=== PATIENT | female | born 1995 | race Caucasian/White ===

== ENCOUNTER 2016-09-30 13:12 | Emergency (ER) | payer OTHER ==
--- NOTE | 2016-09-30 13:48 | ER Document Report ---
ED GI/ - General Mode of Arrival: Ambulatory Information source: Patient TRAVEL OUTSIDE OF THE [place] IN LAST 30 DAYS: No - HPI Patient complains to provider of: Vaginal bleeding Associated symptoms: Other - See above <YUMIKO CLEMENS - Last Filed: 09/30/16 13:49> <BHAVNA JOSÉ - Last Filed: 09/30/16 16:27> - General Chief Complaint: Vag Bleeding, +preg <12wks Stated Complaint: VAGINAL BLEEDING Notes: Patient is a 21 year old, , female who presents to the emergency department complaining of vaginal bleeding onset this morning. Patient reports that there have been some clots passing and also complains of cramping. Patient states she believes she's between 7-10 weeks and had a positive test with her doctor 2 weeks ago, patient does not recall when her last period was. Patient states that she has vitamins at home but does not say if she takes them or not. Patient currently is on effexor xr for anxiety. (YUMIKO CLEMENS) - Related Data Allergies/Adverse Reactions: Sulfa (Sulfonamide Antibiotics) Allergy (Verified 09/30/16 13:20) Past Medical History - General Information source: Patient - Social History Smoking Status: Never Smoker Frequency of alcohol use: Occasional Family History: Reviewed & Not Pertinent Patient has suicidal ideation: No Patient has homicidal ideation: No Past Surgical History: Reports: Hx Orthopedic Surgery - ankle <YUMIKO CLEMENS - Last Filed: 09/30/16 13:49> Review of Systems - Review of Systems Constitutional: No symptoms reported EENT: No symptoms reported Cardiovascular: No symptoms reported Respiratory: No symptoms reported Gastrointestinal: No symptoms reported Genitourinary: No symptoms reported Female Genitourinary: See HPI, , Vaginal bleeding, Other - cramping Musculoskeletal: No symptoms reported Skin: No symptoms reported Hematologic/Lymphatic: No symptoms reported Neurological/Psychological: No symptoms reported -: Yes All other systems reviewed and negative <YUMIKO CLEMENS - Last Filed: 09/30/16 13:49> Physical Exam - Vital signs Interpretation: Normal - General General appearance: Alert, Other - Tearful - HEENT Head: Normocephalic, Atraumatic - Respiratory Respiratory status: No respiratory distress Chest status: Nontender Breath sounds: Normal Chest palpation: Normal - Cardiovascular Rhythm: Regular Heart sounds: Normal auscultation Murmur: No - Abdominal Inspection: Normal Distension: No distension Bowel sounds: Normal Tenderness: Nontender Organomegaly: No organomegaly - Extremities General upper extremity: Normal inspection General lower extremity: Normal inspection - Neurological Neuro grossly intact: Yes Cognition: Normal Orientation: AAOx4 [place] Coma Scale Eye Opening: Spontaneous [place] Coma Scale Verbal: Oriented Ben Coma Scale Motor: Obeys Commands Ben Coma Scale Total: 15 Speech: Normal - Psychological Associated symptoms: Tearful - Skin Skin Temperature: Warm Skin Moisture: Dry Skin Color: Normal <YUMIKO CLEMENS - Last Filed: 09/30/16 13:49> Course <YUMIKO CLEMENS - Last Filed: 09/30/16 13:49> - Laboratory Result Diagrams: 09/30/16 14:12 - Diagnostic Test Radiology reviewed: Reports reviewed - No intrauterine or other abnormality seen on ultrasound <BHAVNA JOSÉ - Last Filed: 09/30/16 16:27> - Re-evaluation Re-evalutation: 09/30/16 16:23 The patient's hCG level is 999, the ultrasound does not show a . (BHAVNA JOSÉ) - Vital Signs Vital signs: Temp Pulse Resp BP Pulse Ox 98.9 F 104 H 18 147/96 H 100 09/30/16 13:20 09/30/16 13:20 09/30/16 13:20 09/30/16 13:20 09/30/16 13:20 - Laboratory Laboratory results interpreted by me: 09/30/16 09/30/16 14:12 14:12 MCH 26.4 L RDW 16.3 H Beta HCG, Quant 999.01 H Discharge <YUMIKO CLEMENS - Last Filed: 09/30/16 13:49> <BHAVNA JOSÉ - Last Filed: 09/30/16 16:27> - Discharge Clinical Impression: Bleeding in early Condition: Stable Disposition: HOME, SELF-CARE Additional Instructions: Bleeding During Early : You have been evaluated for passing blood while . While we take this symptom very seriously, most women with your degree of bleeding will go on to have a perfectly normal baby. At this time, there is no indication that a miscarriage will occur. (A miscarriage occurs when the fetus is abnormal. There is no medicine or treatment to prevent it.) A more serious cause of bleeding is tubal . An ultrasound can show whether the is in the uterus or in the tube. Sometimes in early , no fetus is seen. In this case, careful follow-up, including repeat blood tests and repeat ultrasound, is necessary. You should rest in bed until the symptoms have resolved. Do not douche or have sex for at least a week, or until OK'd by the doctor. Don't use tampons. Call the doctor or return for re-examination if there is an increase in bleeding or cramping, extreme weakness, fainting, new abdominal pain, fever, or passage of tissue. At this time we cannot tell if you have miscarried, or have a very early . A repeat hormone level will need to be done to compare to today's results. Take Tylenol for cramps needed. Follow-up with your primary care provider Sunday or Sunday for repeat hormone level testing. RETURN TO THE EMERGENCY ROOM IF ANY NEW OR WORSENING SYMPTOMS. Jonatanibrachel Attestation: 09/30/16 16:26 I personally performed the services described in the documentation, reviewed and edited the documentation which was dictated to the scribe in my presence, and it accurately records my words and actions. (BHAVNA JOSÉ) Scribe Documentation - Scribe Written by Nehemias:: nehemias Eason, 09/30/16, [id number] acting as scribe for :: Cj <YUMIKO CLEMENS - Last Filed: 09/30/16 13:49>
[2016-09-30 14:30] LABS: ABSOLUTE LYMPHOCYTES (AUTO) 1.4 10^3/uL (0.5-4.7); ABSOLUTE MONOCYTES (AUTO) 0.6 10^3/uL (0.1-1.4); ABSOLUTE NEUT (AUTO) 4.8 10^3/uL (1.7-8.2); BASOPHILS % (AUTO) 0.4 % (0-2); EOSINOPHILS % (AUTO) 0.7 % (0-6); HEMATOCRIT 40.5 % (36.0-47.0); HEMOGLOBIN 13.3 g/dL (12.0-15.5); HGB HCT DIFFERENCE -0.6; LYMPHOCYTES % (AUTO) 20.7 % (13-45); MEAN CORPUSCULAR HEMOGLOBIN 26.4 pg (27.0-33.4); MEAN CORPUSCULAR HGB CONC 32.9 g/dL (32.0-36.0); MEAN CORPUSCULAR VOLUME 80 fl (80-97); MONOCYTES % (AUTO) 8.2 % (3-13); RED BLOOD COUNT 5.06 10^6/uL (3.72-5.28); RED CELL DISTRIBUTION WIDTH 16.3 % (11.5-14.0); WHITE BLOOD COUNT 6.9 10^3/uL (4.0-10.5)
[2016-09-30 17:53] VITALS: BP 129/66
== END 2016-09-30 17:31 | disposition home or self-care (01) ==
LOC: ER 13:12
DX: O20.9 Hemorrhage in early pregnancy, unspecified (principal); O99.340 Other mental disorders complicating pregnancy, unspecified trimester; F41.9 Anxiety disorder, unspecified; O26.899 Other specified pregnancy related conditions, unspecified trimester; R25.2 Cramp and spasm; Z88.2 Allergy status to sulfonamides; Z79.899 Other long term (current) drug therapy; Z3A.00 Weeks of gestation of pregnancy not specified
CPT/HCPCS: 36415; 76817; 84702; 85025; 86900; 86901; 99284